=== PATIENT | male | born 1945 | race Hispanic/Latino ===

== ENCOUNTER → 2018-02-23 | Day surgery (SDC) | payer OTHER ==
[2018-02-22 11:47] LABS: BASOPHILS % 0.6 % (0.0-1.0); EOSINOPHILS # (AUTO) 0.4 (0.0-0.4); EOSINOPHILS % 6.1 % (0.0-6.0); HEMATOCRIT 39.6 % (38.2-49.6); HEMOGLOBIN 12.8 g/dL (14.0-18.0); LYMPHOCYTES # (AUTO) 1.7 (1.0-3.2); LYMPHOCYTES % 24.7 % (18.0-39.1); MEAN CORPUSCULAR HEMOGLOBIN 30.7 pg (28-32); MEAN CORPUSCULAR HGB CONC 32.3 g/dL (31-35); MONOCYTES # (AUTO) 0.4 (0.2-0.8); MONOCYTES % 6.2 % (4.4-11.3); NEUTROPHILS # (AUTO) 4.2 (2.1-6.9); PLATELET COUNT 145 x10e3/uL (140-360); RED BLOOD COUNT 4.17 x10e6/uL (4.3-5.7)
[2018-02-22 12:18] LABS: INR 0.96; PROTHROMBIN TIME 13.7 seconds (11.9-14.5)
[2018-02-22 12:19] LABS: PARTIAL THROMBOPLASTIN TIME 30.6 seconds (23.8-35.5)
[2018-02-22 12:23] LABS: ANION GAP 17.2 mmol/L (8-16); CALCIUM 8.6 mg/dL (8.4-10.2); CREATININE, SERUM 4.48 mg/dL (0.72-1.25); POTASSIUM 4.2 mmol/L (3.5-5.1)
--- NOTE | 2018-02-22 12:54 | Diagnostic Imaging Report ---
EXAMINATION: CHEST 2 VIEWS COMPARISON: Chest radiograph 11/07/2013. FINDINGS: TUBES and LINES: Right-sided tunneled hemodialysis catheter terminates in the lower SVC. LUNGS: Lower lung volume on the left than right. There is elevation of left hemidiaphragm. Linear and patchy basilar opacity. Apparent areas of lucency at the left lung base likely reflect areas of spared consolidation. PLEURA: Possible trace bilateral pleural effusions. No evidence of pneumothorax. HEART AND MEDIASTINUM: Mild enlargement of the cardiac mediastinal silhouette. BONES AND SOFT TISSUES: No acute osseous lesion. Soft tissues are unremarkable. UPPER ABDOMEN: No free air under the diaphragm. IMPRESSION: Patchy and linear left basilar opacity which may represent atelectasis or pneumonia in the appropriate clinical context. Apparent lucency at the left lung base, which could represent areas of lung without consolidation or less likely cystic changes. Follow chest radiograph in 6-8 weeks is suggested. Similar appearance of elevation of left hemidiaphragm. Signed by: Dr. Kory Ramon MD on 02/22/2018 12:51 PM
[~2018-02-23] MED LIST: BELLADONNA/OPIUM 30 MG SUPP RC ONE; CARVEDILOL3.125 MG PO; CEFAZOLIN SOD 1 GM/D5W 50ML 50 ML IV ONE; FENTANYL CITRATE/PF 100MCG/2 ML INJ ONE; FUROSEMIDE40 MG PO; GENTAMICIN 80MG/NS 100 ML 200 ML IV ONE; HYDROMORPHONE 2MG/ML 2 MG/ML ML ONE; IOPAMIDOL 610MG/1ML 300 MG/ML VIAL IV ONE; LEVOTHYROXINE50 MCG PO; LIDOCAINE HCL 2% LOCAL INJ 5 ML SDV VIAL INJ ONE; LORATADINE10 MG PO; MIDAZOLAM HCL 2 MG/2 ML VIAL ONE; MONTELUKAST SOD10 MG PO; PRAVASTATIN; PROPOFOL IV EMULSION 10 MG/ML 20 ML VIAL ONE; SEVOFLURANE INHAL SOLN 250 ML PEN BTL ONE; SODIUM BICARBO650 MG PO; SODIUM CHLORIDE 0.9% 500ML 500 ML ONE; gabapentin; hydralazine hcl
--- OUTSIDE RECORDS SUMMARY | 2018-02-23 07:23 | XMS REPORT ---
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 Allergies, Adverse Reactions, Alerts Allergy Name Allergy Type Status Severity Reaction(s) Onset Date Inactive Date Treating Clinician Comments No Known Allergies DA Active U 2017-11-18 00:00:00 No Known Allergies DA Active U 2014-02-19 00:00:00 Medications This patient has no known medications. Results Test Description Test Time Test Comments Text Results Atomic Results Result Comments CHEST 2 VIEWS 2018-02-22 12:45:00 [place] [id number] Patient Name: MICHA LEGER MR #: [id number] : 1945 Age/Sex: 72/M Req #: [id number] Adm Physician: Ordered by: ESTELLA RAMIREZ MD Report #: [id number] Location: OR Room/Bed: Procedure: [id number] DX/CHEST 2 VIEWS Exam Date: 02/22/18 Exam Time: 1150 REPORT STATUS: Signed EXAMINATION: CHEST 2 VIEWS COMPARISON: Chest radio graph 11/07/2013. FINDINGS: TUBES and LINES: Right-sided tunneled hemodialysis catheter terminates in the lower SVC. LUNGS: Lower lung volume on the left than right. There is elevation of left hemidiaphragm. Linear and patchy basilar opacity. Apparent areas of lucency at the left lung base likely reflect areas of spared consolidation. PLEURA: Possible trace bilateral pleural effusions. No evidence of pneumothorax. HEART AND MEDIASTINUM: Mild enlargement of the cardiac mediastinal silhouette. BONES AND SOFT TISSUES: No acute osseous lesion. Soft tissues are unremarkable. UPPER ABDOMEN: No free air under the diaphragm. IMPRESSION: Patchy and linear left basilar opacity which may represent atelectasis or pneumonia in the appropriate clinical context. Apparent lucency at the left lung base, which could represent areas of lung without consolidation or less likely cystic changes. Follow chest radiograph in 6-8 weeks is suggested. Similar appearance of elevation of left hemidiaphragm. Signed by: Dr. Manish Prajapati MD on 02/22/2018 12:51 PM Dictated By: MANISH PRAJAPATI MD 1251 Transcribed By: DEEPALI on 02/22/18 1251 COPY TO: ESTELLA RAMIREZ MD
[2018-02-23 13:25] VITALS: BP 137/76
--- NOTE | 2018-02-24 00:51 | Operative Report ---
DATE OF PROCEDURE: February 23, 2018 SERVICE: Urology. PREOPERATIVE DIAGNOSES: 1. Benign prostatic hypertrophy with obstruction. 2. Recurrent urinary tract infections. 3. Microhematuria. POSTOPERATIVE DIAGNOSES: 1. Benign prostatic hypertrophy with obstruction. 2. Recurrent urinary tract infections. 3. Microhematuria. OPERATIONS PERFORMED: 1. Cystoscopy and bilateral retrograde pyelograms under fluoroscopic control. 2. Interpretation of x-ray, radiologist not present. 3. Supervision of fluoroscopy, radiologist not present. 4. Prostate removal using plasma instrument. SENIOR SOFTWARE QUALITY ENGINEER: None. ANESTHESIA: General. CLINICAL INDICATION NOTE: [id number] patient with significant voiding symptoms, history of UTI and hematuria, was brought for assessment of the upper tract and prostate surgery. Patient was advised about the procedure, benefits and complications, accepts them. DESCRIPTION OF PROCEDURE AND FINDINGS: After the proper level of anesthesia was achieved, the patient was placed in lithotomy position, prepped and draped in sterile fashion. Urethra inspected is unremarkable. The outlet appeared to be normal except for the blocking prostate more prominent on the right side. Bladder is quite trabeculated. No tumor or foreign body is identified in the bladder. Cone-tipped ureteral catheter was then used for bilateral retrograde pyelograms. The upper tracts appeared to be unremarkable, drainage was prompt. Following this, the resectoscope with plasma system was inserted and the blocking prostate was removed using the plasma button. After completing this part of the procedure, any visible bleeding points were carefully coagulated. The bladder was irrigated to clear. Bladder was filled up with irrigation fluid, resectoscope removed, and Crede maneuver demonstrated good flow. A 22-Danish 30 mL, 3-way Greene catheter was inserted, connected to temporary irrigation with normal saline. Patient tolerated the procedure well and was transferred in satisfactory condition to recovery room after placement of B and O suppository. Followup orders given as well as followup. Job#: [id number]
== END | disposition home or self-care (01) ==
LOC: OR 07:20
PROVIDERS: ATTEND Urology
DX: N40.1 Benign prostatic hyperplasia with lower urinary tract symptoms (principal); N13.8 Other obstructive and reflux uropathy; N39.0 Urinary tract infection, site not specified; E11.22 Type 2 diabetes mellitus with diabetic chronic kidney disease; I12.0 Hypertensive chronic kidney disease with stage 5 chronic kidney disease or end stage renal disease; N18.6 End stage renal disease; Z99.2 Dependence on renal dialysis; N32.89 Other specified disorders of bladder; G62.9 Polyneuropathy, unspecified; J44.9 Chronic obstructive pulmonary disease, unspecified; E78.5 Hyperlipidemia, unspecified; E03.9 Hypothyroidism, unspecified; I44.0 Atrioventricular block, first degree; Z01.810 Encounter for preprocedural cardiovascular examination; Z01.812 Encounter for preprocedural laboratory examination; Z01.818 Encounter for other preprocedural examination; Z87.891 Personal history of nicotine dependence
CPT/HCPCS: 36415 ×2; 52005; 52601; 71046; 74420; 80048; 82948; 84132; 85025; 85610; 85730; 87086; 87186; 93005; C1758; J0690; J1170; J1580; J2001; J2250; J2704; J7040; Q9967